=== PATIENT | male | born 1945 | race Caucasian/White ===

== ENCOUNTER 2023-02-10 13:35 | Outpatient (CLI) | payer MEDICARE, SELFPAY ==
[2023-02-10 14:10] LABS: Basophils # 0.1 10^3/uL (0.0-0.1); Basophils % 0.6 %; Eosinophils # 0.3 10^3/uL (0.0-0.8); Eosinophils % 3.5 %; Hematocrit 31.8 % (37-53); Lymphocytes # 0.6 10^3/uL (0.8-4.8); Lymphocytes % 7.5 %; Mean Corpuscular HGB Conc 32.4 g/dL (30-55); Mean Corpuscular Hemoglobin 26.5 pg (27-33); Mean Corpuscular Volume 81.7 fl (82-101); Mean Platelet Volume 10.2 fL (7.4-10.4); Monocytes # 0.7 10^3/uL (0.2-0.9); Monocytes % 8.6 %; Neutrophils # 6.17 10^3/uL (1.8-7.7); Neutrophils % 79.3 %; Nucleated Red Blood Cells % 0 %; Platelet Count 423 10^3/cmm (157-399); Red Blood Count 3.89 10^6/uL (3.85-5.65); Red Cell Distribution Width 14.6 % (12.1-15.1); White Blood Count 7.78 10^3/uL (3.29-11.43)
[2023-02-10 14:32] LABS: Alanine Aminotransferase 14 U/L (0-41); Albumin Level 3.2 g/dL (3.5-5.2); Alkaline Phosphatase 79 U/L (40-130); Anion Gap 13.2 (5-19); Aspartate Amino Transferase 17 U/L (0-40); Blood Urea Nitrogen 17 mg/dL (8-23); Calcium 8.9 mg/dL (8.5-10.5); Carbon Dioxide 29 mmol/L (22-29); Chloride 96 mmol/L (98-107); Globulin 5.2 g/dL (1.3-4.6); Glucose 76 mg/dL (65-115); Osmolality Calculated 278 mOsm/kg (285-295); Potassium 4.2 mmol/L (3.5-5.1); Sodium 134 mmol/L (136-145); Total Bilirubin 0.4 mg/dL (0.15-1.2); Total Protein 8.4 g/dL (6.6-8.7)
== END 2023-02-10 13:36 | disposition home or self-care (01) ==
PROVIDERS: PCP Internal Medicine Infectious Disease; Visit Provider Internal Medicine Infectious Disease
DX: J18.1 Lobar pneumonia, unspecified organism (principal)
CPT/HCPCS: 80053; 85025

== ENCOUNTER 2023-02-18 17:10 | Outpatient (RCR) | payer MEDICARE, SELFPAY ==
[2023-02-17 14:08] LABS: Basophils # 0.1 10^3/uL (0.0-0.1); Basophils % 0.8 %; Eosinophils # 0.2 10^3/uL (0.0-0.8); Eosinophils % 2.7 %; Hematocrit 30.1 % (37-53); Lymphocytes # 0.7 10^3/uL (0.8-4.8); Lymphocytes % 8.4 %; Mean Corpuscular HGB Conc 33.2 g/dL (30-55); Mean Corpuscular Hemoglobin 26.7 pg (27-33); Mean Corpuscular Volume 80.3 fl (82-101); Mean Platelet Volume 10.2 fL (7.4-10.4); Monocytes # 0.6 10^3/uL (0.2-0.9); Neutrophils # 6.16 10^3/uL (1.8-7.7); Neutrophils % 79.6 %; Nucleated Red Blood Cells % 0 %; Platelet Count 425 10^3/cmm (157-399); Red Blood Count 3.75 10^6/uL (3.85-5.65); Red Cell Distribution Width 14.7 % (12.1-15.1); White Blood Count 7.74 10^3/uL (3.29-11.43)
[2023-02-18 17:33] LABS: Basophils # 0.1 10^3/uL (0.0-0.1); Eosinophils # 0.3 10^3/uL (0.0-0.8); Eosinophils % 3.6 %; Hematocrit 28.1 % (37-53); Lymphocytes # 0.7 10^3/uL (0.8-4.8); Lymphocytes % 9.5 %; Mean Corpuscular HGB Conc 33.1 g/dL (30-55); Mean Corpuscular Hemoglobin 26.1 pg (27-33); Mean Corpuscular Volume 78.7 fl (82-101); Mean Platelet Volume 9.9 fL (7.4-10.4); Monocytes # 0.7 10^3/uL (0.2-0.9); Monocytes % 9.1 %; Neutrophils # 5.48 10^3/uL (1.8-7.7); Neutrophils % 76.4 %; Nucleated Red Blood Cells % 0 %; Platelet Count 399 10^3/cmm (157-399); Red Blood Count 3.57 10^6/uL (3.85-5.65); Red Cell Distribution Width 14.6 % (12.1-15.1); White Blood Count 7.17 10^3/uL (3.29-11.43)
[2023-02-18 18:03] LABS: Alanine Aminotransferase 16 U/L (0-41); Albumin Level 2.8 g/dL (3.5-5.2); Alkaline Phosphatase 75 U/L (40-130); Anion Gap 11.5 (5-19); Aspartate Amino Transferase 17 U/L (0-40); Blood Urea Nitrogen 20 mg/dL (8-23); Calcium 8.6 mg/dL (8.5-10.5); Carbon Dioxide 32 mmol/L (22-29); Chloride 97 mmol/L (98-107); Globulin 5.5 g/dL (1.3-4.6); Glucose 78 mg/dL (65-115); Osmolality Calculated 283 mOsm/kg (285-295); Potassium 4.5 mmol/L (3.5-5.1); Sodium 136 mmol/L (136-145); Total Bilirubin 0.3 mg/dL (0.15-1.2); Total Protein 8.3 g/dL (6.6-8.7)
== END 2023-02-28 23:59 | disposition home or self-care (01) ==
LOC: LAB 17:10
PROVIDERS: PCP Internal Medicine Infectious Disease; Visit Provider Internal Medicine Infectious Disease
DX: J86.9 Pyothorax without fistula (principal)
CPT/HCPCS: 80053; 85025

== ENCOUNTER 2023-02-24 18:05 | Outpatient (CLI) | payer MEDICARE, SELFPAY ==
[2023-02-24 18:23] LABS: Basophils # 0.1 10^3/uL (0.0-0.1); Basophils % 0.9 %; Eosinophils # 0.3 10^3/uL (0.0-0.8); Eosinophils % 3.7 %; Hematocrit 29.6 % (37-53); Lymphocytes # 0.5 10^3/uL (0.8-4.8); Lymphocytes % 7.6 %; Mean Corpuscular HGB Conc 32.4 g/dL (30-55); Mean Corpuscular Hemoglobin 26.2 pg (27-33); Mean Corpuscular Volume 80.9 fl (82-101); Monocytes # 0.6 10^3/uL (0.2-0.9); Monocytes % 8.8 %; Neutrophils # 5.34 10^3/uL (1.8-7.7); Neutrophils % 78.6 %; Nucleated Red Blood Cells % 0 %; Platelet Count 353 10^3/cmm (157-399); Red Blood Count 3.66 10^6/uL (3.85-5.65); Red Cell Distribution Width 15.1 % (12.1-15.1)
[2023-02-24 18:50] LABS: Alanine Aminotransferase 20 U/L (0-41); Albumin Level 2.8 g/dL (3.5-5.2); Alkaline Phosphatase 81 U/L (40-130); Anion Gap 10.7 (5-19); Aspartate Amino Transferase 17 U/L (0-40); Blood Urea Nitrogen 18 mg/dL (8-23); Calcium 8.4 mg/dL (8.5-10.5); Carbon Dioxide 29 mmol/L (22-29); Chloride 98 mmol/L (98-107); Globulin 5.2 g/dL (1.3-4.6); Glucose 104 mg/dL (65-115); Osmolality Calculated 280 mOsm/kg (285-295); Potassium 3.7 mmol/L (3.5-5.1); Sodium 134 mmol/L (136-145); Total Bilirubin 0.3 mg/dL (0.15-1.2)
== END 2023-02-24 18:06 | disposition home or self-care (01) ==
LOC: LAB 18:09
PROVIDERS: PCP Internal Medicine Infectious Disease; Visit Provider Internal Medicine Infectious Disease
DX: Z01.89 Encounter for other specified special examinations (principal)
CPT/HCPCS: 80053; 85025